=== PATIENT | male | born 1950 | race Caucasian/White ===

== ENCOUNTER → 2020-12-02 11:30 | Outpatient (CLI) | payer MEDICARE, SELFPAY ==
[2020-12-02 12:15] LABS: Estimated Glomerular Filt Rate > 60.0 mL/min (>60)
--- NOTE | 2020-12-02 13:53 | DI.CT.S_ITS ---
PROCEDURE: CT ABDOMEN W CON INDICATIONS: R10.32 TECHNIQUE: After the administration of oral and intravenous contrast, 5 mm thick sections acquired from the diaphragms to the iliac crests. 5 mm thick coronal and sagittal reformats were acquired. For radiation dose reduction, the following was used: automated exposure control, adjustment of mA and/or kV according to patient size. COMPARISON: [facility], CT, CT CHEST WITHOUT CONTRAST, 05/22/2020, 11:56. Outside Film, CT, CT ABDOMEN PELVIS WITHOUT CONTRAST, 02/11/2020, 20:28. FINDINGS: Image quality: Excellent. Lung bases: Unchanged centrally calcified left lower lobe mass abutting the pleura, measuring 3.7 x 2.7 cm on previous image 148/3 and 3.5 x 2.5 cm on current image 23/6. Unchanged 4 mm pulmonary nodule, right lower lobe, current image 3/3 and previous image 242/2. Heart size is normal. Solid organs: Liver is normal in size and enhancement. Gallbladder is unremarkable. Biliary system is non dilated. Pancreas enhances normally. Spleen is normal in size and enhancement. No adrenal nodules. Kidneys are normal in size, without hydronephrosis. Peritoneum and bowel: Contrast enhanced bowel loops appear normal in caliber. No free fluid or air. Nodes and vessels: No retroperitoneal or mesenteric adenopathy by size criteria. Aorta and inferior vena cava are normal in size. Bones: No suspicious bony lesions. No vertebral body compression fractures. Miscellaneous: No ventral hernias. IMPRESSION: 1. Stable centrally calcified left lower lobe mass abutting the pleura. This may potentially represent a hamartoma. 2. Stable 4 mm pulmonary nodule, right lower lobe. 3. No findings which explain symptomatology of left upper quadrant abdominal pain. Dictated by: Nirav Ramey M.D. on 12/02/2020 at 14:06 Approved by: Nirav Ramey M.D. on 12/02/2020 at 14:14
== END ==
PROVIDERS: Family Provider Family Medicine; PCP Family Medicine; Referring Provider Family Medicine; Visit Provider Family Medicine
DX: Z01.818 Encounter for other preprocedural examination (principal); R10.32 Left lower quadrant pain; R91.8 Other nonspecific abnormal finding of lung field
CPT/HCPCS: 36415; 74160; 82565; Q9967

== ENCOUNTER 2022-01-03 17:52 | Emergency (ER) | payer MEDICARE, SELFPAY ==
[2022-01-03 18:02] VITALS: BP 174/78; PULSE 85; RESP 20; TEMP 36.4; O2SAT 97; BMI 23.6
--- NOTE | 2022-01-03 18:24 | ED_ITS ---
HPI - Male Genitourinary <BREANNE Gan - Last Filed: 01/03/22 18:57> General Chief complaint: Urogenital-Male Stated complaint: urinary retention issues Time Seen by Provider: 01/03/22 18:00 Source: patient Mode of arrival: Ambulatory History of Present Illness HPI Narrative: To the emergency department complaining of acute urinary retention and symptoms of the same requiring self catheterization over the last 2 days. Patient states that he has been on tamsulosin for the last 3 years for BPH, he was increased to 0.4 mg twice a day dosing a while back, he is also on 5 mg a finasteride, and recently started on doxazosin currently at 2 mg doses. Patient states that he has been having bladder spasms and suprapubic pain, only dribbling small amounts with urinary frequency, he endorses full bladder sensation currently. He lives on [place], has an appointment scheduled at Dr. Tamar Geller Urologist's office on 01/05/2022 for evaluation and ultrasound. [place]. He denies any recent fever, denies any rectal pain or rectal pain with bowel movement, denies any other abdominal pain, other illness or complaint. He denies any penile pain, or penile discharge. He states that after self catheterization last night for 1200 mL he had blood out of his urethral meatus. He denies noticing any blood in his urine. His primary care provider used to be Dr. Jace Reveles, currently it is Devika RAYMUNDO. Related Data Home Medications Medication Instructions Recorded Confirmed CHOLECALCIFEROL (VITAMIN D3) 1,000 units PO QDAY #0 01/17/13 (VITAMIN D3) MULTIVITAMIN 5 ml PO QDAY #0 01/17/13 Previous Rx's Medication Instructions Recorded zoster vaccine live (PF) 19,400 0.5 ml SQ STAT #1 ml 08/21/16 unit/0.65 mL subcutaneous suspension (Zostavax (PF)) beclomethasone dipropionate 80 2 puff INH BID #1 inh 04/27/17 mcg/actuation aerosol inhaler (Qvar) doxazosin 4 mg tablet 4 mg PO DAILY #20 tab 01/03/22 Allergies Allergy/AdvReac Type Severity Reaction Status Date / Time No Known Drug Allergies Allergy Verified 01/03/22 18:56 Review of Systems <BREANNE Gan - Last Filed: 01/03/22 18:57> Review of Systems Narrative: General: denies fever, chills, malaise, sweats, fatigue Head/Neck: denies headache, neck pain, dizziness Eyes: denies visual changes, eye pain Cardio: denies chest pain, palpitations, edema Respiratory: denies dyspnea, cough, orthopnea GI: denies abdominal pain, nausea, vomiting, or diarrhea : denies dysuria, hematuria, urinary retention, frequency or incontinence MSK: denies joint pain, muscle weakness Skin: denies rash, itching, skin lesions or other Neuro: denies numbness, tingling Patient History <BREANNE Gan - Last Filed: 01/03/22 18:57> Surgical History (Updated 01/04/18 @ 04:57 by Conversion Provider) Status post appendectomy Family History (Updated 01/23/16 @ 00:00 by Conversion Provider) Father Heart disease Hypertension Stroke Sister Cancer Social History Smoking Status: Never smoker Smoking Status: Never smoker Substance Use Type: does not use Exam <BREANNE Gan - Last Filed: 01/03/22 18:57> Initial Vital Signs Initial Vital Signs: Vital Signs Temperature 97.5 F L 01/03/22 18:02 Pulse Rate 85 01/03/22 18:02 Respiratory Rate 20 01/03/22 18:02 Blood Pressure 174/78 H 01/03/22 18:02 Pulse Oximetry 97 01/03/22 18:02 <Pradeep Gonzalez DO - Last Filed: 01/04/22 02:19> Initial Vital Signs Initial Vital Signs: Vital Signs Temperature 97.5 F L 01/03/22 18:02 Pulse Rate 85 01/03/22 18:02 Respiratory Rate 20 01/03/22 18:02 Blood Pressure 174/78 H 01/03/22 18:02 Pulse Oximetry 97 01/03/22 18:02 Course <BREANNE Gan - Last Filed: 01/03/22 18:57> Orders Ordered: ED Orders 01/03/22 18:14 Consult to Urology Stat 01/03/22 18:24 UA Complete [Urinalysis and Microscopic] Stat 01/03/22 18:48 Consult to Urology Stat Discontinued Medications Doxazosin Mesylate (Doxazosin 2 Mg Tablet) 2 mg PO NOW ONE Stop: 01/03/22 18:31 Last Admin: 01/03/22 18:45 Dose: 2 mg Documented by: KBROTEM Vital Signs Vital signs: Vital Signs - 8 hr 01/03/22 19:03 Pulse Rate 63 Blood Pressure 163/79 H Pulse Oximetry 96 <Pradeep Gonzalez DO - Last Filed: 01/04/22 02:19> Orders Ordered: ED Orders 01/03/22 18:14 Consult to Urology Stat 01/03/22 18:24 UA Complete [Urinalysis and Microscopic] Stat 01/03/22 18:48 Consult to Urology Stat Discontinued Medications Doxazosin Mesylate (Doxazosin 2 Mg Tablet) 2 mg PO NOW ONE Stop: 01/03/22 18:31 Last Admin: 01/03/22 18:45 Dose: 2 mg Documented by: KBROTEM Vital Signs Vital signs: Vital Signs - 8 hr 01/03/22 19:03 Pulse Rate 63 Blood Pressure 163/79 H Pulse Oximetry 96 MDM - Male Genitourinary <BREANNE Gan - Last Filed: 01/03/22 18:57> Lab Data Labs: Lab Results 01/03/22 Range/Units 18:24 Urine Color Yellow Urine Appearance Clear Urine pH 6.5 (4.5-8.0) Ur Specific [place] 1.010 (1.000-1.035) Urine Protein Negative (Negative) Urine Glucose (UA) Negative (Negative) g/dL Urine Ketones Negative (NEGATIVE) Urine Occult Blood Negative (Negative) Urine Nitrate Negative (Negative) Urine Bilirubin Negative (NEGATIVE) Urine Urobilinogen 0.2 (0.2) E.U./dL Ur Leukocyte Esterase Negative (NEGATIVE) Urine RBC None seen (0-5/HPF) Urine WBC 0-1/hpf (0-5/HPF) Ur Squamous Epith Cells 0-1 /hpf (0-5/HPF) Amorphous Sediment 1+ Urine Bacteria None seen (None) Ur Culture Indicated? Cult not indicated MDM Narrative Medical decision making narrative: This is a 71-year-old male with history of BPH on tamsulosin b.i.d. dosing for the last 3 years who presents to the emergency department with acute urinary retention over the last 4 days. He was started on doxazosin 2mg in addition to his 5 mg finasteride tabs 4 days ago and he reports he had 2 episodes of acute urinary retention requiring catheterization at home 1 for 1200 mL and the other for 2100 mL. Today bladder scan postvoid showed over 600 mL, a 16 [place] Rapp catheter was placed and he had over 1200 urine output. UA catheter does not show any bacteria, blood, nitrates, or blood cells. Patient has an evaluation scheduled at [facility] on 01/05/2022 with the PA for Dr. Tamar Geller. [place], and his primary care provider did not know if [place] had a urologist. I have placed referral for Dr. Rayo as patient would prefer to see him early this week for follow-up. Patient is staying here in and [place] for the next 5 days. Patient denies any recent fever, other abdominal pain, pain with bowel movement, or any rectal pain. He has never had a cystoscopy or instrumentation to his bladder or other. Patient denies any history of kidney stones. This is most likely acute urinary retention related to BPH, differential also includes prostatitis, malignancy, urethral stricture or obstruction. Recommend close follow-up with urology as scheduled, he was fitted with a leg bag, instructed how to use it, given strict return precautions. Patient is appropriate and amenable to discharge home. Vital signs are stable on repeat examination is unremarkable. Patient has been informed of results. Patient has been given strict return to ER precautions for any new or worsening symptoms. Patient understands to follow up closely with outpatient providers as instructed. Patient understands plan and agrees to discharge home. All questions and concerns answered at this time. <Pradeep Gonzalez, DO - Last Filed: 01/04/22 02:19> Lab Data Labs: Lab Results 01/03/22 Range/Units 18:24 Urine Color Yellow Urine Appearance Clear Urine pH 6.5 (4.5-8.0) Ur Specific [place] 1.010 (1.000-1.035) Urine Protein Negative (Negative) Urine Glucose (UA) Negative (Negative) g/dL Urine Ketones Negative (NEGATIVE) Urine Occult Blood Negative (Negative) Urine Nitrate Negative (Negative) Urine Bilirubin Negative (NEGATIVE) Urine Urobilinogen 0.2 (0.2) E.U./dL Ur Leukocyte Esterase Negative (NEGATIVE) Urine RBC None seen (0-5/HPF) Urine WBC 0-1/hpf (0-5/HPF) Ur Squamous Epith Cells 0-1 /hpf (0-5/HPF) Amorphous Sediment 1+ Urine Bacteria None seen (None) Ur Culture Indicated? Cult not indicated Discharge Plan Departure Patient Disposition: Home Clinical Impression: Acute urinary retention Instructions: How to Care for Your Rapp Catheter -- Male, DI for Urinary Retention in Men Activity Restrictions/Additional Instructions: *You have been diagnosed with acute urinary retention likely related to your enlarged prostate. Please follow-up at your appointment on January 05 as scheduled. Please discuss treatment options with them and if this will require surgery or not. I have placed an internal referral to Dr. Rayo with Urology, he serves the [facility]. Please call his office Wednesday morning and schedule an appointment for later this week. You can have records sent over from [facility] if you have any test done over there at your appointment. Please increase your doxazosin to 4 mg daily, you may take 2 of your pills that you already have, continue on your tamsulosin 0.4 mg b.i.d. dosing, and your finasteride 5 mg daily. Please continue to stay hydrated, go to your urology appointment, follow-up with your primary care provider as needed. And I hope that this is all resolved for you soon. It was a pleasure to meet you both, I am sorry for your pain and discomfort, glad that it is better. I sent 4 mg tabs to [facility] if you need any more eventually. Wishing you all the best. *What to do: *Please continue to take your regular medications as directed. [x ] New medication prescriptions sent to your pharmacy: [ [place]] [ ] New medication written as a paper prescription [ ] No new medications given *Please follow up with your primary care provider in 2-3 days, call for an appointment. Let them know you were seen in the Emergency Department and that we asked that you be seen for follow-up. We will electronically transmit a record of today's note if your PCP is in our system *If you do not have a primary care provider please contact [phone] to establish care with one of [facility] primary care providers. *Return to Emergency Department if you should have any new, worsening or concerning symptoms, such as [fever greater than 101F, chills, worsening pain, persistent vomiting or other bothersome symptoms] Prescriptions: New doxazosin 4 mg tablet 4 mg PO DAILY Qty: 20 0RF No Action MULTIVITAMIN 5 ml PO QDAY Qty: 0 0RF CHOLECALCIFEROL (VITAMIN D3) (VITAMIN D3) 1,000 units PO QDAY Qty: 0 0RF zoster vaccine live (PF) [Zostavax (PF)] 19,400 UNIT/0.65 ML suspension for reconstitution 0.5 ml SQ STAT Qty: 1 0RF beclomethasone dipropionate [Qvar] 80 MCG/PUFF aerosol 2 puff INH BID Qty: 1 1RF Referrals: Tamar Geller MD [Non-Staff] - Prince Rayo MD [Physician] - Devika Gudino ARNP [Primary Care Provider] - <Pradeep Gonzalez DO - Last Filed: 01/04/22 02:19> Cosign ED Attending Nicolaature Attestation: I was immediately available in the department for consultation. Documentation has been reviewed. I agree with assessment and plan.
[2022-01-03 18:33] LABS: Appearance Urine UA CLEAR; Bilirubin Urine UA NEGATIVE (NEGATIVE); Color Urine UA YELLOW; Glucose Urine UA NEGATIVE (Negative); Ketones Urine UA NEGATIVE (NEGATIVE); Leukocyte Esterase Urine UA NEGATIVE (NEGATIVE); Nitrite Urine UA NEGATIVE (Negative); Occult Blood Urine UA NEGATIVE (Negative); Protein Urine UA NEGATIVE (Negative); Urobilinogen Urine UA 0.2 E.U./dL (0.2); pH Urine UA 6.5 (4.5-8.0)
[2022-01-03 18:41] LABS: Amorphous Sediment Urine 1+; RBC Urine None Seen (0-5/HPF); Squamous Epithelial Cell Urine 0-1 /HPF (0-5/HPF); WBC Urine 0-1/HPF (0-5/HPF)
[2022-01-03 18:42] LABS: Bacteria Urine None Seen; Culture Indicated Urine Cult Not Indicated
[2022-01-03] MEDS: DOXAZOSIN 2 MG TABLET PO (18:45)
[2022-01-03 19:03] VITALS: BP 163/79; PULSE 63; O2SAT 96
== END 2022-01-03 19:03 | disposition home or self-care (01) ==
PROVIDERS: Emergency Provider Nurse Practitioner Critical Care Medicine; Family Provider Family Medicine; PCP Nurse Practitioner Family
DX: N40.1 Benign prostatic hyperplasia with lower urinary tract symptoms (principal); R33.8 Other retention of urine
CPT/HCPCS: 51702; 81001; 99283

== ENCOUNTER → 2022-01-05 11:04 | Outpatient (CLI) | payer MEDICARE, SELFPAY ==
--- NOTE | 2022-01-05 | DI.US.S_ITS ---
PROCEDURE: US RETROPERITONEAL COMP INDICATIONS: URINARY RETENTION;BENIGN PROSTATIC HYPERPLASIA TECHNIQUE: Real-time scanning was performed of the kidneys and bladder, with image documentation. COMPARISON: None. FINDINGS: Kidneys: Kidneys are normal in size. Right kidney measures 10.0 cm long; left kidney measures 9.6 cm long. Right renal cortical thickness is 1.5 cm; left renal cortical thickness is 1.5 cm. Renal cortical echotexture is normal. No hydronephrosis or nephrolithiasis. No suspicious solid mass lesions. Bladder: Bladder is nondistended with a wade catheter. On pre-void images, neither ureteral jets are noted with color Doppler interrogation. (Of note, ureteral jets may not be detectable in up to 25% of cases due to insufficient differences in specific gravity between ureteral and bladder urine). Prostate appears prominent. Miscellaneous: No free pelvic fluid. IMPRESSION: Collapsed bladder with a Wade catheter, limiting evaluation of potential wall thickening. Dictated by: Zohreh Boyle M.D. on 01/05/2022 at 13:18 Approved by: Zohreh Boyle M.D. on 01/05/2022 at 13:28
== END ==
PROVIDERS: Family Provider Family Medicine; PCP Nurse Practitioner Family; Referring Provider Nurse Practitioner Family; Visit Provider Nurse Practitioner Family
DX: N40.1 Benign prostatic hyperplasia with lower urinary tract symptoms (principal); R33.8 Other retention of urine; N23 Unspecified renal colic; N32.89 Other specified disorders of bladder
CPT/HCPCS: 76770

== ENCOUNTER → 2022-03-23 16:57 | Outpatient (CLI) | payer MEDICARE, SELFPAY ==
--- NOTE | 2022-03-23 16:58 | DI.MRI.S_ITS ---
PROCEDURE: MR PELIS WO/W CON INDICATIONS: Prostate nodule urinary retention TECHNIQUE: Coronal HASTE, axial T1 FSE with fat saturation, 3-plane nonbreath-hold T2 FSE. After the administration of contrast, dynamic axial, delayed axial and coronal VIBE or 2-D FLASH with fat saturation through the pelvis. Optional diffusion weighted imaging and ADC may be performed. COMPARISON: None. FINDINGS: Image quality: Diffusion weighted and dynamic contrast enhanced images are diagnostic. Prostate: Gland size is 3.8 x 3.2 x 4.1 cm; ellipsoid gland volume is 26 mL. At the prostate base-mid gland, there is relatively diffuse nonfocal mild ADC hypointensity within the peripheral zone without corresponding DWI hyperintensity. This corresponds to nonfocal ill-defined T2 hypointensity, without convincing early enhancement on dynamic post-contrast images. Findings are most consistent with PI-RADS category 2 findings. Within the transition zone, no large lesion strongly stands out against the background parenchymal appearance of the transition zone on T2 weighted images (PI-RADS 2 findings). Genitourinary system: The bladder wall appears trabeculated and multiple large diverticula are present. Bowel and peritoneum: No pathologic free pelvic fluid. Inferior colon and small bowel loops are normal in caliber. Nodes and vessels: No pelvic or inguinal adenopathy by size criteria. Iliac vessels are normal in caliber. Soft tissues: No definite inguinal hernias. Bones: Marrow demonstrates normal overall signal, without lesions to suggest metastases. IMPRESSION: 1. By PI-RADS criteria, no large or highly suspicious focal prostate lesion to direct biopsy is identified. Prostate volume is estimated at 26 cc. If there is high clinical suspicion for prostate neoplasm, ultrasound guided biopsy or sextant biopsy may be helpful for further evaluation. If biopsy is performed, attention to the peripheral zone at the prostate base may be helpful given nonspecific signal changes in this region, however etiologies such as sequela of prostatitis or prominence of the prostatic central zone can result in similar findings. Followup prostate MRI could also be performed, with the interval at clinical discretion. 2. Multiple bladder diverticula are present suggestive of chronic outlet obstruction. 3. No suspicious lymph nodes visualized within the imaged pelvis. Dictated by: Chato Severino M.D. on 03/24/2022 at 15:52 Approved by: Chato Severino M.D. on 03/24/2022 at 16:32
== END ==
PROVIDERS: Family Provider Family Medicine; PCP Nurse Practitioner Family; Referring Provider Urology; Visit Provider Urology
DX: N42.9 Disorder of prostate, unspecified (principal); R33.9 Retention of urine, unspecified; N32.3 Diverticulum of bladder
CPT/HCPCS: 72197; A9579

== ENCOUNTER 2022-05-19 05:15 | Emergency (ER) | payer MEDICARE, SELFPAY ==
[2022-05-19 05:20] VITALS: BP 111/76; PULSE 89; RESP 17; TEMP 36.2; O2SAT 97; BMI 22.4
--- NOTE | 2022-05-19 05:49 | ED_ITS ---
HPI - General Adult General Chief complaint: Urogenital-Male Stated complaint: UTI Time Seen by Provider: 05/19/22 05:21 Source: patient Mode of arrival: Ambulatory History of Present Illness HPI narrative: Patient is a 71-year-old male. Has had issues with enlarged prostate and urinary retention in the past. He currently self catheterizes at home. He is a follow-up on Wednesday for a TURP procedure. He states that a couple days ago he started to have symptoms consistent with urinary tract infection to include foul-smelling urine and discoloration and some burning and subjective fevers. He was scheduled to start Macrobid yesterday in preparation for his procedure later this week so he saw his providers on [place] where he lives. A urine culture was obtained. He does not have the results of these yet and he was told to start taking the Macrobid. He is taken 2 doses of this medication. He states that overnight when he was self cathing he feels that the discoloration in the foul smell have actually improved. He is still somewhat subjective fevers. No vomiting. He does get variable volumes of urine out when he catheterizes and can be as much as 600 mL. Related Data Home Medications Medication Instructions Recorded Confirmed multivitamin 1 tab PO DAILY ##0 01/17/13 05/13/22 famotidine 20 mg tablet 20 mg PO DAILY 03/05/22 05/13/22 tamsulosin 0.4 mg capsule 0.4 mg PO DAILY 03/05/22 05/13/22 finasteride 5 mg tablet 5 mg PO DAILY 04/03/22 05/13/22 cholecalciferol (vitamin D3) 50 50 mcg PO DAILY 05/13/22 05/13/22 mcg (2,000 unit) tablet (Vitamin D3) Previous Rx's Medication Instructions Recorded zoster vaccine live (PF) 19,400 0.5 ml SQ STAT #1 mL 08/21/16 unit/0.65 mL subcutaneous suspension (Zostavax (PF)) Allergies Allergy/AdvReac Type Severity Reaction Status Date / Time No Known Drug Allergies Allergy Verified 03/05/22 14:49 Review of Systems Constitutional Constitutional: Reports as per HPI and Reports system reviewed and no additional complaints, except as documented Gastrointestinal Gastrointestinal: Reports as per HPI and Reports system reviewed and no additional complaints, except as documented Genitourinary Genitourinary: Reports system reviewed and no additional complaints, except as documented and Reports as per HPI Integumentary/Breasts Skin/Breast: Reports system reviewed and no additional complaints, except as documented Hematologic/Lymphatic On Anticoagulants: No Patient History Medical History Arthritis BPH (benign prostatic hyperplasia) Lower urinary tract symptoms Male circumcision Surgical History History of Achilles tendon repair History of shoulder surgery Status post appendectomy Family History Father Heart disease Hypertension Stroke Sister Cancer Stroke Brother Stroke Social History marital status: number of children: 0 household members: spouse Smoking Status: Former smoker Type(s) of exercise: walking frequency: daily Smoking Status: Former smoker Substance Use Type: does not use Exam Initial Vital Signs Initial Vital Signs: Vital Signs Temperature 97.1 F L 05/19/22 05:20 Pulse Rate 89 05/19/22 05:20 Respiratory Rate 17 05/19/22 05:20 Blood Pressure 111/76 05/19/22 05:20 Pulse Oximetry 97 05/19/22 05:20 Oxygen Delivery Method 05/19/22 05:20 Const General: cooperative and healthy appearing Resp Effort & Inspection: normal respiratory effort Cardio Rate: regular rate Skin General: no rashes or lesions noted Neuro General: patient alert, patient awake and moves all extremities Extrem General: normal to inspection Course Vital Signs Vital signs: Vital Signs - 8 hr 05/19/22 05:20 Temperature 97.1 F L Pulse Rate 89 Respiratory Rate 17 Blood Pressure 111/76 Pulse Oximetry 97 Oxygen Delivery Method Room Air Medical Decision Making MDM Narrative Medical decision making narrative: Patient states that Macrobid has worked for him in the past. I do not have the urine culture that was obtained earlier this week to review. He is no urine cultures in our system for review. Macrobid is a very reasonable antibiotic and he does make statements that make me think that his symptoms are improving. Plan be is to not change any antibiotics for now. Informed him that we should wait for this culture to result before switching antibiotics given what seems to be the improvement of symptoms. He agrees with this. He has been catheterizing himself every couple hours because he states he was told that he should not let his bladder have more than 400 mL of urine in it. This has caused quite a bit of distress on his life and he is not been sleeping very much. We discussed placing an indwelling Rapp catheter in order to ease these issues. We also discussed that he could continue to self cath himself at home. After this discussion we did place a Rapp catheter. We will discharge home and have him keep his appointment with his urologist at the end of this week. He was given return precautions. He expressed understanding and agreement. Discharge Plan Departure Patient Disposition: Home Clinical Impression: Urinary tract infection Instructions: How to Care for Your Rapp Catheter -- Male, DI for Urinary Tract Infection (UTI) Activity Restrictions/Additional Instructions: I recommend that you continue to take the Macrobid/nitrofurantoin as directed until the culture that was obtained by your primary doctor results. I also recommend that you keep your appointment with your urologist later this week. You may want to give your urologist office a call to let them know that you now have a catheter in place and potentially are dealing with a urinary tract infection. Return to the emergency department for any new or worsening symptoms. Prescriptions: No Action multivitamin Tablet 1 tab PO DAILY Qty: 0 zoster vaccine live (PF) [Zostavax (PF)] 19,400 UNIT/0.65 ML suspension for reconstitution 0.5 ml SQ STAT Qty: 1 0RF cholecalciferol (vitamin D3) [Vitamin D3] 50 mcg (2,000 unit) Tablet 50 mcg PO DAILY finasteride 5 mg tablet 5 mg PO DAILY tamsulosin 0.4 mg capsule 0.4 mg PO DAILY famotidine 20 mg tablet 20 mg PO DAILY Referrals: Devika Gudino ARNP [Primary Care Provider] -
== END 2022-05-19 06:36 | disposition home or self-care (01) ==
PROVIDERS: Emergency Provider Emergency Medicine; Family Provider Family Medicine; PCP Nurse Practitioner Family
DX: N39.0 Urinary tract infection, site not specified (principal)
CPT/HCPCS: 99283

== ENCOUNTER → 2023-07-09 10:14 | Outpatient (CLI) | payer MEDICARE, SELFPAY ==
--- NOTE | 2023-07-09 | DI.US.S_ITS ---
PROCEDURE: US ABD AORTA ANEURYSM SCREEN INDICATIONS: PERSONAL HISTORY OF NICOTINE DEPENDENCY TECHNIQUE: Real time scanning was performed of the aorta and iliac arteries, with image documentation. COMPARISON: None. FINDINGS: Aorta: Proximal aortic diameter measures 2 cm. Mid-aorta measures 1.5 cm. Distal aortic diameter is 1.4 cm. Iliac arteries: Right common iliac artery measures 0.8 cm. Left common iliac artery measures 0.9 cm. IMPRESSION: Negative for aneurysm. Dictated by: Tirso Garcia M.D. on 07/09/2023 at 9:43 Approved by: Tirso Garcia M.D. on 07/09/2023 at 9:44
== END ==
LOC: US 10:15
PROVIDERS: Family Provider Family Medicine; PCP Family Medicine; Referring Provider Family Medicine; Visit Provider Family Medicine
DX: Z87.891 Personal history of nicotine dependence (principal); Z13.6 Encounter for screening for cardiovascular disorders
CPT/HCPCS: 76706

== ENCOUNTER → 2024-11-24 10:47 | Outpatient (CLI) | payer MEDICARE, SELFPAY ==
--- NOTE | 2024-11-24 10:48 | DI.US.S_ITS ---
PROCEDURE: US ABDOMEN COMPLETE INDICATIONS: ABD PAIN/DISTENTION/RT GROIN MASS/R/O HERNIA TECHNIQUE: Real-time scanning was performed of the abdominal and retroperitoneal organs, with image documentation. COMPARISON: [facility], MR, MR PELVIS WO/W CON, 03/23/2022, 17:10. FINDINGS: Liver: Liver is normal in size and homogeneous in echotexture. Gallbladder: Normal. Biliary ducts: Intrahepatic bile ducts are non-dilated. Extrahepatic bile duct caliber measures 3.3 mm. Normal is 6-7 mm or less in diameter, or 10 mm or less post-cholecystectomy. Pancreas: Visualized portions of the pancreas are sonographically normal. Spleen: Spleen is normal in size and homogeneous in echotexture. Kidneys: Kidneys are normal in size and echotexture. Right kidney measures 9.6 cm long; left kidney measures 10.4 cm long. No hydronephrosis or nephrolithiasis. No solid masses. Aorta: Visualized aorta is normal in caliber at less than 3 cm. Iliacs: Proximal common iliac arteries are normal in caliber at less than 2.5 cm. IVC: Intrahepatic inferior vena cava is patent. Miscellaneous: No free abdominal fluid. Targeted ultrasound of the region of concern in the right groin demonstrates no sonographic abnormality. IMPRESSION: Normal abdominal ultrasound. No sonographic abnormality of the right groin. Dictated by: Kevin Ayala M.D. on 11/24/2024 at 15:10 Approved by: Kevin Ayala M.D. on 11/24/2024 at 15:12
== END ==
PROVIDERS: Family Provider Family Medicine; PCP Family Medicine; Referring Provider Family Medicine; Visit Provider Family Medicine
DX: K21.9 Gastro-esophageal reflux disease without esophagitis (principal); R19.09 Other intra-abdominal and pelvic swelling, mass and lump; R10.9 Unspecified abdominal pain; R14.3 Flatulence; R14.1 Gas pain; R14.2 Eructation; G89.29 Other chronic pain
CPT/HCPCS: 76700